=== PATIENT | female | born 1965 | race African-American/Black ===

== ENCOUNTER 2024-06-07 07:54 | Emergency (ER) | payer OTHER ==
[~2024-06-07] VITALS: Ht 175.3 cm; Wt 77.1 kg
[2024-06-07 08:23] VITALS: BP 153/100; PULSE 70; RESP 16; TEMP 36.8; O2SAT 100
[2024-06-07] MEDS: KETOROLAC 30MG/ML VIAL IV ONE (08:45)
[2024-06-07] MEDS: DIPHENHYDRAMINE 50MG/ML VIAL IV ONE (08:45)
[2024-06-07 09:16] LABS: BASOPHILS % 0.6 % (0.0-2.0); DIFFERENTIAL COMMENT 0; EOSINOPHILS % 3.8 % (0.0-5.0); HEMATOCRIT. 36.7 % (36.0-48.0); HEMOGLOBIN. 11.7 g/dL (12.0-16.0); MEAN CORPUSCULAR HEMOGLOBIN 24.9 pg (28.0-32.0); MEAN CORPUSCULAR HGB CONC 31.9 g/dL (31.0-37.0); MEAN PLATELET VOLUME 8.1 fl (7.4-10.4); MONOCYTES % 5.3 % (2.0-8.0); NEUTROPHILS % 59.3 % (40.0-76.0); PLATELET 397 x1000/uL (130-400); RED BLOOD CELL COUNT 4.71 mill/uL (4.2-5.4); RED CELL DISTRIBUTION WIDTH 17.4 % (11.6-14.6)
[2024-06-07 09:25] LABS: CHLORIDE 107 mEq/L (98-107); POTASSIUM 3.7 mEq/L (3.5-5.1); SODIUM 142 mEq/L (136-145)
[2024-06-07 09:26] LABS: CALCIUM 9.8 mg/dL (8.7-10.4); CARBON DIOXIDE 29 mEq/L (21-32)
[2024-06-07 09:31] LABS: CREATININE 0.5 mg/dL (0.6-1.0); GLUCOSE 98 mg/dL (70-105); UREA NITROGEN BLOOD 8 mg/dL (9-23)
[2024-06-07 09:35] LABS: TROPONIN I HIGH SENSITIVITY < 4 ng/L (3.0-34)
[2024-06-07] MEDS ORDERED: AMOX1TAB16 MT (09:45)
[2024-06-07] MEDS: AMOXICILLIN/POTASSIUM CLAVULANATE 875/125MG TAB PO ONE (11:06)
[2024-06-07] MEDS ORDERED: AMLO5TAB88 MT (12:19)
[2024-06-07] MEDS ORDERED: NAPR-681 MT (12:19)
[2024-06-07] MEDS ORDERED: LISI-186 MT (12:19)
[2024-06-07] MEDS: IOHEXOL-300 100 ML BOTTLE ONE (13:51)
== END 2024-06-07 13:17 | disposition home or self-care (01) ==
LOC: ER 07:54
DX: M54.2 Cervicalgia (principal); I10 Essential (primary) hypertension; E78.00 Pure hypercholesterolemia, unspecified; Z90.49 Acquired absence of other specified parts of digestive tract; Z79.1 Long term (current) use of non-steroidal anti-inflammatories (NSAID); Z79.899 Other long term (current) drug therapy
CPT/HCPCS: 99285; 96374; 70491; 71045; 96375; 80048; 83880; 85025; 84484; 36415; 93005; J1885; Q9967; J1200

== ENCOUNTER 2024-08-16 21:17 | Emergency (ER) | payer OTHER ==
[~2024-08-16] VITALS: Ht 170.2 cm; Wt 77.0 kg
[~2024-08-16 21:17] MED LIST: AMLO5TAB88 MT; LISI-186 MT; NAPR-681 MT
[2024-08-16 21:34] VITALS: TEMP 36.7; O2SAT 98
[2024-08-16] MEDS ORDERED: KETOROLAC 30MG/ML VIAL IV STA (22:35)
[2024-08-16] MEDS ORDERED: LORAZEPAM 2MG/ML INJ IV ONE (22:45)
[2024-08-16] MEDS ORDERED: DIPHENHYDRAMINE 50MG/ML VIAL IV ONE (22:45)
[2024-08-16] MEDS: KETOROLAC 30MG/ML VIAL IV NR (23:47)
[2024-08-16] MEDS: DIPHENHYDRAMINE 50MG/ML VIAL IV NR (23:47)
[2024-08-17 00:12] LABS: BASOPHILS % 0.7 % (0.0-2.0); DIFFERENTIAL COMMENT 0; HEMATOCRIT. 35.2 % (36.0-48.0); HEMOGLOBIN. 11.4 g/dL (12.0-16.0); LYMPHOCYTES % 31.6 % (20.0-50.0); MEAN CORPUSCULAR HEMOGLOBIN 25.8 pg (28.0-32.0); MEAN CORPUSCULAR HGB CONC 32.5 g/dL (31.0-37.0); MEAN CORPUSCULAR VOLUME 79.4 fL (81.0-99.0); MEAN PLATELET VOLUME 8.7 fl (7.4-10.4); MONOCYTES % 6.2 % (2.0-8.0); NEUTROPHILS % 57.5 % (40.0-76.0); PLATELET 407 x1000/uL (130-400); RED BLOOD CELL COUNT 4.43 mill/uL (4.2-5.4); RED CELL DISTRIBUTION WIDTH 16.6 % (11.6-14.6); WHITE BLOOD COUNT 5.2 x1000/uL (4.5-11.0)
[2024-08-17 00:15] LABS: CHLORIDE 108 mEq/L (98-107); SODIUM 140 mEq/L (136-145)
[2024-08-17 00:16] LABS: CARBON DIOXIDE 25 mEq/L (21-32)
[2024-08-17 00:17] LABS: CALCIUM 9.3 mg/dL (8.7-10.4)
[2024-08-17 00:21] LABS: CREATININE 0.6 mg/dL (0.6-1.0); GLUCOSE 109 mg/dL (70-105)
[2024-08-17] MEDS: SODIUM CHLORIDE 0.9% 1,000 ML IV ONE (00:21)
[2024-08-17 00:22] LABS: UREA NITROGEN BLOOD 9 mg/dL (9-23)
[2024-08-17] MEDS: LORAZEPAM 2MG/ML UD SYRINGE IV NR (00:22)
[2024-08-17 00:23] LABS: ALANINE AMINOTRANSFERASE 15 IU/L (10-49); ALBUMIN 4.1 g/dL (3.2-4.8); ASPARTATE AMINOTRANSFERASE 17 IU/L (<34)
[2024-08-17 00:24] LABS: BILIRUBIN DIRECT 0.2 mg/dL (<=3.0); BILIRUBIN TOTAL 0.6 mg/dL (0.1-1.0); PROTEIN TOTAL 7.7 g/dL (6.0-8.3)
[2024-08-17] MEDS: KCL 20MEQ/100ML PREMIX 100 ML IV ONE (00:30)
[2024-08-17 00:34] LABS: THYROID STIMULATING HORMONE 1.52 uIU/mL (0.55-4.78)
[2024-08-17] MEDS: KETOROLAC 15MG/ML VIAL IV ONE (01:59)
[2024-08-17] MEDS: POTASSIUM CHLORIDE 20MEQ/PACKET PO ONE (01:59)
[2024-08-17] MEDS ORDERED: IBUP-2028 MT (02:06)
[2024-08-17 06:00] VITALS: BP 148/97; PULSE 65; RESP 13; O2SAT 93
== END 2024-08-17 06:13 | disposition home or self-care (01) ==
LOC: ER 21:17
DX: M54.2 Cervicalgia (principal); M43.6 Torticollis; E87.6 Hypokalemia; I10 Essential (primary) hypertension; E78.00 Pure hypercholesterolemia, unspecified; Z90.49 Acquired absence of other specified parts of digestive tract; Z79.899 Other long term (current) drug therapy; Z79.1 Long term (current) use of non-steroidal anti-inflammatories (NSAID)
CPT/HCPCS: 80076; 80048; 84443; 85025; 36415; 96374; 96375 ×2; 99285; 93970; 96361; 96376; J1200; J1885 ×2; J7030; Z7610; J2060; A4606